=== PATIENT | female | born 1970 | race Caucasian/White ===

== ENCOUNTER 2019-12-06 19:35 | Emergency (ER) | payer OTHER ==
[~2019-12-06] VITALS: Ht 162.6 cm; Wt 113.6 kg
[~2019-12-06 19:35] MED LIST: IBUPROFEN600 MG PO; PERCOCET 5-3251 TAB PO
[2019-12-06 19:44] VITALS: Ht 162.6 cm; Wt 113.6 kg
[2019-12-06] MEDS ORDERED: AUGMENTIN 875-11 TAB PO (22:53)
[2019-12-06] MEDS ORDERED: CLEOCIN HCL300 MG PO (22:53)
[2019-12-06] MEDS ORDERED: HYDROCODON-ACE1 EAC2 PO (22:53)
== END 2019-12-06 23:08 | disposition home or self-care (01) ==
LOC: D.ER 19:35
DX: N61.1 Abscess of the breast and nipple (principal)